=== PATIENT | male | born 1990 | race African-American/Black ===

== ENCOUNTER 2017-07-28 06:44 | Emergency (ER) | payer SELFPAY ==
[~2017-07-28] VITALS: Ht 157.5 cm; Wt 70.0 kg
[~2017-07-28 06:44] MED LIST: BENADRY2 EX; BENADRYL 50MG C50 MG PO; NAPROSYN500 MG OR; PENICILLN VK500 MG OR
[2017-07-28] MEDS ORDERED: ACULAR LS0.4 % OU (07:32)
[2017-07-28 07:48] LABS: URINE BILIRUBIN - DIPSTICK NEGATIVE (NEGATIVE); URINE BLOOD DIPSTICK SMALL (NEGATIVE); URINE CLARITY CLOUDY; URINE COLOR YELLOW; URINE GLUCOSE - DIPSTICK NEGATIVE (NEGATIVE); URINE KETONE NEGATIVE (NEGATIVE); URINE LEUK ESTERASE MODERATE (NEGATIVE); URINE NITRITE - DIPSTICK NEGATIVE (Negative); URINE PH 6.5 (4.5-8.0); URINE PROTEIN - DIPSTICK NEGATIVE (NEG-TRACE); URINE SPECIFIC GRAVITY 1.015; URINE UROBILINOGEN - DIPSTICK 0.2 E.U./dL (0.2)
[2017-07-28 07:49] VITALS: BP 118/74
[2017-07-28 07:50] LABS: URINE RBC 0-2 RBC/hpf (0-5); URINE WBC 50-100 WBC/hpf (0-5)
== END 2017-07-28 07:49 | disposition home or self-care (01) | DRG 125 ==
LOC: ED 06:44
PROVIDERS: Emergency Medicine
DX: H57.13 Ocular pain, bilateral (principal); R30.0 Dysuria; F17.210 Nicotine dependence, cigarettes, uncomplicated

== ENCOUNTER 2017-11-20 02:29 | Emergency (ER) | payer SELFPAY ==
[~2017-11-20 02:29] MED LIST changes: +ACULAR LS0.4 % OU
== END 2017-11-20 03:00 | disposition home or self-care (01) | DRG 951 ==
LOC: ED 02:29 → LWOBS 03:00
DX: Z91.19 Patient's noncompliance with other medical treatment and regimen (principal)

== ENCOUNTER 2019-06-29 18:35 | Emergency (ER) | payer SELFPAY ==
[~2019-06-29] VITALS: Ht 157.5 cm; Wt 61.0 kg
[2019-06-29 19:14] LABS: URINE BLOOD DIPSTICK TRACE-INTACT (NEGATIVE); URINE COLOR YELLOW; URINE GLUCOSE - DIPSTICK NEGATIVE (NEGATIVE); URINE KETONE NEGATIVE (NEGATIVE); URINE NITRITE - DIPSTICK NEGATIVE (Negative); URINE PROTEIN - DIPSTICK NEGATIVE (NEG-TRACE)
[2019-06-29 19:19] LABS: URINE BILIRUBIN - DIPSTICK NEGATIVE (NEGATIVE); URINE LEUK ESTERASE SMALL (NEGATIVE)
[2019-06-29 19:28] LABS: URINE WBC 50-100 WBC/hpf (0-5)
[2019-06-29] MEDS ORDERED: KEFLEX500 MG PO (19:37)
[2019-06-29 20:00] VITALS: BP 114/72
== END 2019-06-29 20:18 | disposition home or self-care (01) | DRG 690 ==
LOC: ED 18:35
DX: N39.0 Urinary tract infection, site not specified (principal); F17.210 Nicotine dependence, cigarettes, uncomplicated

== ENCOUNTER 2021-09-07 21:43 | Emergency (ER) | payer SELFPAY ==
[~2021-09-07] VITALS: Ht 157.5 cm; Wt 60.0 kg
[~2021-09-07 21:43] MED LIST changes: +KEFLEX500 MG PO
[2021-09-07 23:15] VITALS: BP 120/60
== END 2021-09-07 23:10 | disposition home or self-care (01) | DRG 153 ==
LOC: ED 21:43
DX: J06.9 Acute upper respiratory infection, unspecified (principal); F17.210 Nicotine dependence, cigarettes, uncomplicated; Z20.822 Contact with and (suspected) exposure to COVID-19

== ENCOUNTER 2022-07-29 13:41 | Emergency (ER) | payer SELFPAY ==
[~2022-07-29] VITALS: Ht 157.5 cm; Wt 61.3 kg
[2022-07-29 14:46] VITALS: BP 136/68
[2022-07-29 14:53] LABS: HEMATOCRIT 40.1 % (39.0-50.0); HEMOGLOBIN 13.7 g/dl (14.0-18.0); IMMATURE GRANULOCYTES 0.3 % (0.0-5.0); MEAN CELL VOLUME 91.6 fL CALC (80.0-100.0); MEAN CORPUSCULAR HGB 31.3 pG CALC (26.0-32.0); MEAN CORPUSCULAR HGB CONC 34.2 g/dL CAL (32.0-36.0); NEUT# 12.78 thou/uL (1.82-7.42); RED BLOOD COUNT 4.38 mill/uL (4.70-6.10); RED CELL DISTRI WIDTH 13.5 % (11.5-15.5)
[2022-07-29 15:00] VITALS: BP 137/73
[2022-07-29 15:10] LABS: ALBUMIN 4.5 g/dL (3.2-5.0); ALKALINE PHOSPHATASE 61 u/l (38-126); ANION GAP 9 (6-22 (CALC)); BILIRUBIN, TOTAL 0.6 mg/dL (0.0-1.4); BUN 7 mg/dL (9-20); BUN/CREATININE RATIO 7 (12-20 (CALC)); CARBON DIOXIDE 28 mmol/l (22-30); CHLORIDE 101 mmol/l (95-108); GFR FOR AFR.AMER. > 60 ML/MIN (>=60 (CALC)); GFR OTHER RACES > 60 ML/MIN (>=60 (CALC)); POTASSIUM 3.5 mmol/l (3.5-5.1); SGOT/AST 40 u/l (17-59); SODIUM 135 mmol/l (137-146); TOTAL PROTEIN 7.4 g/dL (6.3-8.2)
[2022-07-29 15:15] VITALS: BP 127/53
[2022-07-29 15:45] VITALS: BP 104/46
[2022-07-29 16:54] VITALS: BP 104/46
== END 2022-07-29 16:54 | disposition home or self-care (01) | DRG 103 ==
LOC: ED 13:41
PROVIDERS: Family Medicine
DX: R51.9 Headache, unspecified (principal); R50.9 Fever, unspecified